=== PATIENT | female | born 2000 | race Caucasian/White ===

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

== ENCOUNTER 2022-09-09 22:20 | Emergency (ER) | payer OTHER ==
[2022-09-09 22:33] VITALS: TEMP 98.9
[2022-09-09] MEDS ORDERED: predniSONE 20 MG TAB PO STA (23:58)
--- NOTE | 2022-09-10 00:01 | ED ---
General Adult HPI - General Chief complaint: Skin/Abscess/Foreign Body Stated complaint: rash on back Time Seen by Provider: 09/09/22 23:19 Source: patient, RN notes reviewed Mode of arrival: ambulatory Limitations: no limitations - History of Present Illness Initial comments: 22-year-old female presents to the emergency department for evaluation of rash to the right flank and right arm, onset 3 days ago. Patient complains of itching discomfort. Did not take anything prior to arrival to treat her symptoms. No known contact with irritant sources. No recent changes in laundry detergent, soaps, or lotions. Denies fever, chills, pain, shortness of breath, wheezing, or difficulty breathing. - Related Data Home Medications Medication Instructions Recorded Confirmed Ferrous Sulfate [Feosol] 325 mg PO DAILY 06/30/20 07/26/21 Vit No.180/Iron/Folic 1 each PO DAILY 06/30/20 07/26/21 [ Plus Tablet] Previous Rx's Medication Instructions Recorded predniSONE [Deltasone] 40 mg PO DAILY #4 tab 09/10/22 Allergies Allergy/AdvReac Type Severity Reaction Status Date / Time amoxicillin Allergy Rash/Hives Verified 09/09/22 22:32 Penicillins Allergy Rash/Hives Verified 07/26/21 06:26 Review of Systems ROS Statement: Those systems with pertinent positive or pertinent negative responses have been documented in the HPI. ROS Other: All systems not noted in ROS Statement are negative. Past Medical History Past Medical History: Asthma Additional Past Medical History / Comment(s): high blood pressure after 1st delivery History of Any Multi-Drug Resistant Organisms: None Reported Past Surgical History: No Surgical Hx Reported Past Anesthesia/Blood Transfusion Reactions: No Reported Reaction Past Psychological History: No Psychological Hx Reported Smoking Status: Never smoker Past Alcohol Use History: None Reported Past Drug Use History: None Reported - Past Family History Father Family Medical History: No Reported History General Exam Limitations: no limitations (Well-developed, well-nourished female in no acute distress.) General appearance: alert, in no apparent distress ENT exam: Present: normal oropharynx, mucous membranes moist Respiratory exam: Present: normal lung sounds bilaterally. Absent: respiratory distress, wheezes, rales, rhonchi, stridor Cardiovascular Exam: Present: regular rate, normal rhythm, normal heart sounds. Absent: systolic murmur, diastolic murmur, rubs, gallop, clicks Neurological exam: Present: alert, oriented X3, CN II-XII intact Psychiatric exam: Present: normal affect, normal mood Skin exam: Present: warm, dry, normal color, rash Expanded Distribution of rash: RUE, other (rt flank) Description of rash: Present: papular (clustered papular rash on right flank and right upper arm. Associated with itching. ) Course Vital Signs 09/09/22 22:30 Temperature 98.9 F Pulse Rate 88 Respiratory 16 Rate Blood Pressure 125/86 O2 Sat by Pulse 100 Oximetry Medical Decision Making - Medical Decision Making This is a well-appearing 22-year-old female in no significant past medical history who presents to the emergency department with a three-day history of a rash on the right flank and right upper extremity. Rash is accompanied by itching discomfort, but is not painful. No prodromal symptoms. Discussed contact dermatitis versus shingles. Rash is clustered papules; nonvesicular lesions. This is likely a contact dermatitis. Patient will be started on a steroid and instructed to take Benadryl upon arrival. Encouraged to avoid known irritants and explore possible triggers. Instructed to follow up with PCP for recheck next week. Return parameters discussed in detail. Patient verbalizes understanding and agrees with this plan. Attending: Melanie. Disposition Clinical Impression: Contact dermatitis Disposition: HOME SELF-CARE Condition: Stable Instructions (If sedation given, give patient instructions): Contact Dermatitis (ED) Additional Instructions: Take steroid as prescribed. May take Benadryl at night for itching discomfort. Avoid applying any fragrance or irritating product on skin. May use calamine lotion. Follow-up with your PCP for a recheck next week if needed. Return to the emergency department with any new, worsening, or concerning symptoms. Prescriptions: predniSONE [Deltasone] 40 mg PO DAILY #4 tab Is patient prescribed a controlled substance at d/c from ED?: No Referrals: None,Stated [Primary Care Provider] - 1-2 days Time of Disposition: 00:01
[2022-09-10 00:16] VITALS: BP 120/87; PULSE 85; RESP 18
== END 2022-09-10 00:15 | disposition home or self-care (01) ==
LOC: EC 22:20
DX: L25.9 Unspecified contact dermatitis, unspecified cause (principal); J45.909 Unspecified asthma, uncomplicated; Z88.0 Allergy status to penicillin; Z79.899 Other long term (current) drug therapy
CPT/HCPCS: 99282; J7512

== ENCOUNTER 2024-01-26 00:55 | Outpatient (CLI) | payer OTHER ==
[2024-01-26 02:07] LABS: Anisocytosis Slight; Basophils % (A) 0 %; Eosinophils # (A) 0.1 k/uL (0-0.7); Eosinophils % (A) 1 %; HCT 28.8 % (34.0-46.0); HGB 9.1 gm/dL (11.4-16.0); Hypochromasia Slight; Lymphocytes # (A) 1.7 k/uL (1.0-4.8); Lymphocytes % (A) 24 %; MCHC 31.6 g/dL (31.0-37.0); MCV 82.3 fL (80.0-100.0); Monocytes # (A) 0.3 k/uL (0-1.0); Monocytes % (A) 4 %; Neutrophils # (A) 4.9 k/uL (1.3-7.7); Neutrophils % (A) 69 %; Platelet Count 313 k/uL (150-450); Poikilocytosis Slight; RDW 17.5 % (11.5-15.5)
[2024-01-26 02:11] VITALS: BP 130/88; PULSE 106; RESP 16; TEMP 97.9
[2024-01-26 02:14] LABS: Appearance,Urine Cloudy (Clear); Bilirubin,Urine Negative (Negative); Blood,Urine Small (Negative); Color,Urine Yellow; Glucose,Urine (UA) Negative (Negative); Ketones,Urine Trace (Negative); Leukocyte Esterase,Urine Large (Negative); Mucus,Urine Few /hpf; Nitrite,Urine Negative (Negative); PH, Urine 6.5 (5.0-8.0); Protein,Urine 2+ (Negative); RBC,Urine 39 /hpf (0-5); Specific Gravity,Urine 1.023 (1.001-1.035); Squamous Epithelial Cell,Urine 3 /hpf (0-4); WBC,Urine 100 /hpf (0-5)
[2024-01-26 02:17] LABS: Amphetamine Screen,Urine Not Detected (NotDetected); Barbiturate Screen,Urine Not Detected (NotDetected); Benzodiazepines Screen,Urine Not Detected (NotDetected); Cocaine Screen,Urine Not Detected (NotDetected); Methadone Screen, Urine Not Detected (NotDetected); Opiate Screen,Urine Not Detected (NotDetected); Oxycodone Screen, Urine Not Detected (NotDetected); Phencyclidine Screen,Urine Not Detected (NotDetected); Tricyclic Antidepressant,Urine Not Detected (NotDetected); Urn Cannabinoid Scrn Not Detected (NotDetected)
[2024-01-27 00:47] LABS: Hepatitis B Surface Antigen Nonreactive
[2024-01-28 09:21] LABS: HIV 2 AB Non-Reactive (Non-Reactive); HIV AB P24 Non-Reactive (Non-Reactive); HIV P24 AG Non-Reactive (Non-Reactive)
[2024-01-28 14:10] LABS: C. trachomatis,PCR Negative (Negative)
[2024-01-28 14:15] LABS: N. gonorrhoeae,PCR Negative (Negative)
--- NOTE | 2024-03-11 08:14 | P.MSEPDOC ---
Presenting Problems - Arrival Data Date of Arrival on Unit: 01/26/24 Time of Arrival on Unit: 00:55 Mode of Transport: Ambulatory - Complaint OB-Reason for Admission/Chief Complaint: Rule Out SROM Comment: pt. present to triage due to leaking for 3-4 days- pt. states she is unsure if its her fluid that is leaking, pt.has had no care this besides one ultrasound around 10weeks at the [facility] which gave her a due date 01/19 Medical History - Information : 4 Para: 3 Term: 3 : 0 Abortions: Spontaneous or Elective: 0 Number of Living Children: 3 - Gestational Age Gestational Age by CHARLINE (wks/days): 40 Weeks and 6 Days - History Complications: No Care Review of Systems - Review of Systems Constitutional: No problems Breast: No problems ENT: No problems Cardiovascular: No problems Respiratory: No problems Gastrointestinal: No problems Genitourinary: No problems Musculoskeletal: No problems Neurological: No problems Skin: No problems Vital Signs - Temperature Temperature: 97.9 F Temperature Source: Temporal Artery Scan - Pulse Pulse Oximetery Pulse Rate: 106 Pulse Assessment Method: Automatic Cuff - Respirations Respiratory Rate: 16 Oxygen Delivery Method: Room Air O2 Sat by Pulse Oximetry: 99 - Blood Pressure Right Arm Blood Pressure: 130/88 Blood Pressure Mean: 102 Medical Screen Scoring - Uterine Contractions Resting: Soft to palpation - Assessment - Baby A Baseline FHR: 135 Heart Rate - NICHD Category: Category I (Normal) NST: Reactive Physician Notification - Physician Notified Physician Notified Date: 01/26/24 Physician Notified Time: 01:27 Physician: Miryam Boone New Order Received: Yes - Notification Comment Comment: pt. states she plans on delivering here just was unable to get into establish care for this - orders to collect labs and UDS and discharge pt. home Maternal Triage Index - Maternal Triage Index Presenting for scheduled procedure w/no complaint: No - Stat/Priority 1 Stat Priority 1: No - Urgent/Priority 2 Urgent Priority 2: No - Prompt/Priority 3 Prompt Priority 3: No - Non-Urgent/Priority 4 Non-Urgent Priority 4: Yes Criteria Met for Priority 4: amnisure negative, lissethming 02/19- pt. comfortable- one contraction traced since present to triage Disposition - Disposition OB Disposition: Discharge to home Discharge Date: 01/26/24 Discharge Time: 01:53 I agree with the RN Medical Screening Exam: Yes Case reviewed; plan agreed upon as documented in EMR&OBIX.: Yes Diagnosis: FALSE LABOR AT OR AFTER 37 COMPLETED WEEKS OF GESTATION
== END 2024-01-26 01:53 | disposition home or self-care (01) ==
LOC: FBPOP 00:55
PROVIDERS: ATTEND Obstetrics & Gynecology
DX: O47.1 False labor at or after 37 completed weeks of gestation (principal); Z3A.40 40 weeks gestation of pregnancy; Z88.0 Allergy status to penicillin
CPT/HCPCS: 59025; 84112; 36415; 86900; 86901; 86762; 82947; 85025; 86850; 87340; 81001; 87491; 87591; 86780; 80306; 87081; 87390; G0463; 99213

== ENCOUNTER 2025-05-19 10:55 | Emergency (ER) | payer OTHER ==
[2025-05-19 11:00] VITALS: TEMP 98
--- NOTE | 2025-05-19 11:39 | ED ---
Female Urogenital HPI - General Chief complaint: Vaginal Bleeding Stated complaint: Vaginal bleeding Time Seen by Provider: 05/19/25 11:37 Source: patient, RN notes reviewed Mode of arrival: ambulatory Limitations: no limitations - History of Present Illness Initial comments: 24-year-old female presented the ER for evaluation of vaginal bleeding. Patient reports in February she had a miscarriage at approximately 6 weeks gestation, patient has not follow-up with OB. Patient states she is A1. She states she has not had a menstrual cycle since then. Yesterday she started to have vaginal spotting but she believes she was starting her menstrual cycle. After showering today she noticed a large amount of blood and states she was "peeing blood". S he also reports passing 4-5 hand size clots. Patient also endorsing lower abdominal cramping which did increase after bleeding increased. She denies blood thinner use. States she has not been sexually active since miscarriage. Patient denies a history of endometriosis, PCOS or uterine fibroids. Patient states after passing clots she was feeling mildly dizzy and nauseous. She denies fevers, chills, vomiting, chest pain, shortness of breath, urinary complaints, constipation/diarrhea or peripheral edema. Patient denies any control use. Last Menstrual Period: 05/19/25 - Related Data Home Medications Medication Instructions Recorded Confirmed Vit No.180/Iron/Folic 1 each PO DAILY 06/30/20 01/26/24 [ Plus Tablet] Previous Rx's Medication Instructions Recorded Wwc-Brik-Jtbes Acid 1 each PO DAILY #30 cap 05/19/25 [-U Capsule] Allergies Allergy/AdvReac Type Severity Reaction Status Date / Time amoxicillin Allergy Rash/Hives Verified 01/26/24 00:59 Penicillins Allergy Rash/Hives Verified 01/26/24 00:59 Review of Systems ROS Statement: Those systems with pertinent positive or pertinent negative responses have been documented in the HPI. ROS Other: All systems not noted in ROS Statement are negative. Past Medical History Past Medical History: Asthma Additional Past Medical History / Comment(s): high blood pressure after 1st delivery History of Any Multi-Drug Resistant Organisms: None Reported Past Surgical History: No Surgical Hx Reported Past Anesthesia/Blood Transfusion Reactions: No Reported Reaction Past Psychological History: No Psychological Hx Reported Smoking Status: Never smoker - Past Family History Father Family Medical History: No Reported History General Exam Limitations: no limitations General appearance: alert, in no apparent distress Respiratory exam: Present: normal lung sounds bilaterally. Absent: respiratory distress, wheezes, rales, rhonchi, stridor Cardiovascular Exam: Present: regular rate, normal rhythm, normal heart sounds. Absent: systolic murmur, diastolic murmur, rubs, gallop, clicks GI/Abdominal exam: Present: soft, tenderness (bilateral lower quadrants), normal bowel sounds. Absent: distended, guarding, rebound, rigid Extremities exam: Present: normal inspection, full ROM, normal capillary refill. Absent: tenderness, pedal edema, joint swelling, calf tenderness Neurological exam: Present: alert, oriented X3, CN II-XII intact Skin exam: Present: warm, dry, intact, normal color. Absent: rash Course Vital Signs 05/19/25 05/19/25 10:58 15:39 Temperature 98 F Pulse Rate 108 H 70 Respiratory 20 18 Rate Blood Pressure 108/74 100/60 O2 Sat by Pulse 98 100 Oximetry Medical Decision Making - Medical Decision Making Was pt. sent in by a medical professional or institution (, PA, STEAM PRESS OPERATOR, urgent care, hospital, or alf...) When possible be specific @ -No Did you speak to anyone other than the patient for history (EMS, parent, family, police, friend...)? What history was obtained from this source @ -No Did you review nursing and triage notes (agree or disagree)? Why? @ -I reviewed and agree with nursing and triage notes Were old charts reviewed (outside hosp., previous admission, EMS record, old EKG, old radiological studies, urgent care reports/EKG's, alf records)? Report findings @ -No old charts were reviewed Differential Diagnosis (chest pain, altered mental status, abdominal pain women, abdominal pain men, vaginal bleeding, weakness, fever, dyspnea, syncope, hea dache, dizziness, GI bleed, back pain, seizure, CVA, palpatations, mental health, musculoskeletal)? @ -Differential Vaginal Bleeding:Spontaneous , threatened , molar , ectopic , bloody show, incompetent cervix, abruptioplacenta, placenta previa, uterine rupture, dysfunctional uterine bleeding, hemorrhage, uterine fibroids, this is not meant to be an a ll-inclusive list. EKG interpreted by me (3pts min.). @ -None done X-rays interpreted by me (1pt min.). @ -None done CT interpreted by me (1pt min.). @ -None done U/S interpreted by me (1pt. min.). @ -Transvaginal ultrasound showing a thickened endometrium. No evidence of right ovarian torsion. Nonvisualization of left ovary due to overlying bowel gas. What testing was considered but not performed or refused? (CT, X-rays, U/S, labs)? Why? @ -None What meds were considered but not given or refused? Why? @ -None Did you discuss the management of the patient with other professionals (prof emmanuel i.e. , PA, STEAM PRESS OPERATOR, lab, RT, psych nurse, social organization professor, traffic operator, teacher, juvenile justice officer, gearcase assembler)? Give summary @ -No Was smoking cessation discussed for >3mins.? @ -No Was critical care preformed (if so, how long)? @ -No Were there social determinants of health that impacted care today? How? (Homelessness, low income, unemployed, alcoholism, drug addiction, transportation, low edu. Level, literacy, decrease access to med. care, penitentiary, rehab)? @ -No Was there de-escalation of care discussed even if they declined (Discuss DNR or withdrawal of care, Hospice)? DNR status @ -No What co-morbidities impacted this encounter? (DM, HTN, Smoking, COPD, CAD, Cancer, CVA, ARF, Chemo, Hep., AIDS, mental health diagnosis, sleep apnea, morbid obesity)? @ - Was patient admitted / discharged? Hospital course, mention meds given and route, prescriptions, significant lab abnormalities, going to OR and other pertinent info. @ -Discharge. 24-year-old female presented the ER for evaluation of vaginal bleeding. Vital signs stable. Patient no signs acute distress nontoxic-appe aring. Laboratory studies remarkable for stable hemoglobin of 10.8. WBC 10.4 left shift. CMP unimpressive. Serum hCG 2614. Urinalysis is hemorrhagic likely contaminated from vaginal bleeding. No evidence of infection. Transvaginal ultrasound showing thickened endometrium. No evidence of right ovarian torsion. Left ovary unable to be visualized given overlying bowel gas. Patient reported with IV fluid bolus and Tylenol for pain control, with improvement. Blood type A- for which patient received RhoGAM prior to discharge. Upon reevaluation, patient educated on today's findings. Patient discharged in stable condition advised follow-up closely with TRAFFIC REPORTER for reevaluation of repeat ultrasounds. I instructed patient to have repeat hCG in 48 hours, prescription provided. prescribed. Strict return parameters discussed. Patient verbally expressed understand agree with care plan. Case discussed with ED attending, Dr. Luna. Undiagnosed new problem with uncertain prognosis? @ -No Drug Therapy requiring intensive monitoring for toxicity (Heparin, Nitro, Insulin, Cardizem)? @ -No Were any procedures done? @ -No Diagnosis/symptom? @ -Vaginal bleeding/ Acute, or Chronic, or Acute on Chronic? @ -Acute Uncomplicated (without systemic symptoms) or Complicated (systemic symptoms)? @ -Uncomplicated Side effects of treatment? @ -No Exacerbation, Progression, or Severe Exacerbation? @ -No Poses a threat to life or bodily function? How? (Chest pain, [place], VA, pneumonia, PE, COPD, DKA, ARF, appy, cholecystitis, CVA, Diverticulitis, Homicidal, Suicidal, threat to staff... and all critical care pts) @ -No - Lab Data Result diagrams: 05/19/25 11:48 05/19/25 11:48 Lab Results 05/19/25 05/19/25 05/19/25 Range/Units 11:43 11:48 11:48 WBC 10.45 H (4.50-10.00) 10*3/uL RBC 3.65 L (4.10-5.20) 10*6/uL Hgb 10.8 L (12.0-15.0) g/dL Hct 32.9 L (37.2-46.3) % MCV 90.1 (80.0-97.0) fL MCH 29.6 (27.0-32.0) pg MCHC 32.8 (32.0-37.0) g/dL Plt Count 233 (140-440) 10*3/uL MPV 11.5 (9.5-12.2) fL Immature Gran % (Auto) 0.3 % Neutrophils % 83.7 % Lymphocytes % 9.6 % Monocytes % 5.6 % Eosinophils % 0.4 % Basophils % 0.4 % Immature Gran # 0.03 (0.00-0.04) 10*3/uL Neutrophils # 8.75 H (1.80-7.70) 10*3/uL Lymphocytes # 1.00 (0.90-5.00) 10*3/uL Monocytes # 0.59 (0.20-1.00) 10*3/uL Eosinophils # 0.04 (0.04-0.35) 10*3/uL Basophils # 0.04 (0.00-0.10) 10*3/uL Sodium 136 L (137-145) mmol/L Potassium 4.1 (3.5-5.1) mmol/L Chloride 102 (98-107) mmol/L Carbon Dioxide 24 (22-30) mmol/L Anion Gap 10 mmol/L BUN 7 (7-17) mg/dL Creatinine 0.43 L (0.52-1.04) mg/dL Est GFR (CKD-EPI)AfAm >90 (>60 ml/min/1.73 sqM) Est GFR (CKD-EPI)NonAf >90 (>60 ml/min/1.73 sqM) Glucose 93 (74-99) mg/dL Calcium 9.7 (8.4-10.2) mg/dL Total Bilirubin 0.7 (0.2-1.3) mg/dL AST 29 (14-36) U/L ALT 14 (4-34) U/L Alkaline Phosphatase 68 (38-126) U/L Total Protein 7.1 (6.3-8.2) g/dL Albumin 4.2 (3.5-5.0) g/dL HCG, Quant 2614.2 mIU/mL Urine Color Urine Appearance (Clear) Urine pH (5.0-8.0) Ur Specific [place] (1.001-1.035) Urine Protein (Negative) Urine Glucose (UA) (Negative) Urine Ketones (Negative) Urine Blood (Negative) Urine Nitrite (Negative) Urine Bilirubin (Negative) Urine Urobilinogen (<2.0) mg/dL Ur Leukocyte Esterase (Negative) Urine RBC (0-5) /hpf Urine WBC (0-5) /hpf Ur Squamous Epith Cells (0-4) /hpf Hyaline Casts (0-2) /lpf Urine Mucus (None) /hpf Urine HCG, Qual (Not Detectd) Blood Type A Negative Blood Type Recheck A Neg Bld Type Recheck Status No Antibody Screen NEGATIVE Spec Expiration Date 05/22/2025 - 234205/19/25 05/19/25 Range/Units 13:02 13:02 WBC (4.50-10.00) 10*3/uL RBC (4.10-5.20) 10*6/uL Hgb (12.0-15.0) g/dL Hct (37.2-46.3) % MCV (80.0-97.0) fL MCH (27.0-32.0) pg MCHC (32.0-37.0) g/dL Plt Count (140-440) 10*3/uL MPV (9.5-12.2) fL Immature Gran % (Auto) % Neutrophils % % Lymphocytes % % Monocytes % % Eosinophils % % Basophils % % Immature Gran # (0.00-0.04) 10*3/uL Neutrophils # (1.80-7.70) 10*3/uL Lymphocytes # (0.90-5.00) 10*3/uL Monocytes # (0.20-1.00) 10*3/uL Eosinophils # (0.04-0.35) 10*3/uL Basophils # (0.00-0.10) 10*3/uL Sodium (137-145) mmol/L Potassium (3.5-5.1) mmol/L Chloride (98-107) mmol/L Carbon Dioxide (22-30) mmol/L Anion Gap mmol/L BUN (7-17) mg/dL Creatinine (0.52-1.04) mg/dL Est GFR (CKD-EPI)AfAm (>60 ml/min/1.73 sqM) Est GFR (CKD-EPI)NonAf (>60 ml/min/1.73 sqM) Glucose (74-99) mg/dL Calcium (8.4-10.2) mg/dL Total Bilirubin (0.2-1.3) mg/dL AST (14-36) U/L ALT (4-34) U/L Alkaline Phosphatase (38-126) U/L Total Protein (6.3-8.2) g/dL Albumin (3.5-5.0) g/dL HCG, Quant mIU/mL Urine Color Yellow Urine Appearance Clear (Clear) Urine pH 6.0 (5.0-8.0) Ur Specific [place] 1.025 (1.001-1.035) Urine Protein Trace H (Negative) Urine Glucose (UA) Negative (Negative) Urine Ketones Negative (Negative) Urine Blood Large H (Negative) Urine Nitrite Negative (Negative) Urine Bilirubin Negative (Negative) Urine Urobilinogen <2.0 (<2.0) mg/dL Ur Leukocyte Esterase Negative (Negative) Urine RBC >182 H (0-5) /hpf Urine WBC 2 (0-5) /hpf Ur Squamous Epith Cells 3 (0-4) /hpf Hyaline Casts 2 (0-2) /lpf Urine Mucus Many H (None) /hpf Urine HCG, Qual Detected (Not Detectd) Blood Type Blood Type Recheck Bld Type Recheck Status Antibody Screen Spec Expiration Date - Radiology Data Radiology results: report reviewed, image reviewed Disposition Clinical Impression: , Vaginal bleeding in Disposition: HOME SELF-CARE Condition: Stable Additional Instructions: Have repeat hCG drawn in 48 hours. Follow-up closely with TRAFFIC REPORTER. Return to the ER for any new or worsening concerns. Prescriptions: Rhb-Sxhp-Npyfe Acid [-U Capsule] 1 each PO DAILY #30 cap Is patient prescribed a controlled substance at d/c from ED?: No Referrals: None,Stated [Primary Care Provider] - 1-2 days Leon Richard MD [STAFF PHYSICIAN] - 1-2 days Time of Disposition: 15:08
[2025-05-19] MEDS: SODIUM CHLORIDE 0.9% 1,000 ML IV ONE (11:45)
[2025-05-19] MEDS: ACETAMINOPHEN TAB 325 MG TAB PO STA (11:46)
--- NOTE | 2025-05-19 13:08 | US ---
EXAMINATION TYPE: US transvaginal DATE OF EXAM: 05/19/2025 COMPARISON: NONE CLINICAL INDICATION: Female, 24 years old with history of vaginal clotting; Vaginal bleeding. Previou s miscarriage 3 months ago, no menstrual cycle since. TECHNIQUE: Transvaginal (TV). Transvaginal grayscale sonographic images of the pelvis were acquired. Doppler imaging: Color Doppler Images were obtained. Spectral doppler images were obtained. FINDINGS: Date of LMP: N/A EXAM MEASUREMENTS: Uterus: 11.4 x 7.0 x 7.3 cm Endometrial Stripe: 3.9 cm Right Ovary: 1.7 x 3.0 x 1.2 cm Left Ovary: Not visualized due to bowel gas. 1. Uterus: Anteverted Appears slightly larger than normal 2. Endometrium: Thickened 3. Right Ovary: wnl 4. Left Ovary: Obscured by overlying bowel gas Spectral, color and waveform doppler imaging shows good arterial and venous flow within the right o vary; there is no evidence for right ovarian torsion. 5. Bilateral Adnexa: wnl 6. Posterior cul-de-sac: wnl Anteverted uterus without focal lesion. Thickened endometrium measuring up to 3.9 cm. No internal inc reased color flow within the endometrium. No evidence of right ovarian torsion. Multiple peripheral f ollicles demonstrated within the right ovary. The left ovary is not visualized due to overlying bowel gas. No free fluid. IMPRESSION: 1. Thickened endometrium. Etiologies include endometrial hyperplasia versus other. Consider direct v isualization versus short-term follow-up exam in 6-12 weeks. 2. Nonvisualization of the left ovary due to overlying bowel gas. [facility], , 05/19/2025 1:06 PM
[2025-05-19 13:17] LABS: Bilirubin,Urine Negative (Negative); Blood,Urine Large (Negative); Color,Urine Yellow; Glucose,Urine (UA) Negative (Negative); Hyaline Casts,Urine 2 /lpf (0-2); Ketones,Urine Negative (Negative); Leukocyte Esterase,Urine Negative (Negative); Mucus,Urine Many /hpf; Nitrite,Urine Negative (Negative); PH, Urine 6.0 (5.0-8.0); Protein,Urine Trace (Negative); RBC,Urine >182 /hpf (0-5); Specific Gravity,Urine 1.025 (1.001-1.035); Squamous Epithelial Cell,Urine 3 /hpf (0-4); Urobilinogen,Urine <2.0 mg/dL (<2.0); WBC,Urine 2 /hpf (0-5)
[2025-05-19 14:02] LABS: Basophils # (A) 0.04 10*3/uL (0.00-0.10); Basophils % (A) 0.4 %; Eosinophils # (A) 0.04 10*3/uL (0.04-0.35); Eosinophils % (A) 0.4 %; HCT 32.9 % (37.2-46.3); HGB 10.8 g/dL (12.0-15.0); Lymphocytes # (A) 1.00 10*3/uL (0.90-5.00); Lymphocytes % (A) 9.6 %; MCH 29.6 pg (27.0-32.0); MCHC 32.8 g/dL (32.0-37.0); MCV 90.1 fL (80.0-97.0); Monocytes # (A) 0.59 10*3/uL (0.20-1.00); Monocytes % (A) 5.6 %; Neutrophils # (A) 8.75 10*3/uL (1.80-7.70); Neutrophils % (A) 83.7 %; Platelet Count 233 10*3/uL (140-440); RBC 3.65 10*6/uL (4.10-5.20); RDW 13.6 % (11.5-14.5); WBC 10.45 10*3/uL (4.50-10.00)
[2025-05-19 14:06] LABS: ALT 14 U/L (4-34); African American GFR (CKD) >90 (>60 ml/min/1.73 sqM); Albumin 4.2 g/dL (3.5-5.0); Anion Gap 10 mmol/L; Blood Urea Nitrogen 7 mg/dL (7-17); Calcium 9.7 mg/dL (8.4-10.2); Carbon Dioxide 24 mmol/L (22-30); Chloride 102 mmol/L (98-107); Glucose 93 mg/dL (74-99); Non-African American GFR(CKD) >90 (>60 ml/min/1.73 sqM); Sodium 136 mmol/L (137-145); Total Protein 7.1 g/dL (6.3-8.2)
[2025-05-19 14:23] LABS: AST 29 U/L (14-36); HCG,Quantitative Serum 2614.2 mIU/mL; Potassium 4.1 mmol/L (3.5-5.1)
[2025-05-19 14:24] LABS: Alkaline Phosphatase 68 U/L (38-126)
[2025-05-19] MEDS: Rhogam IMMUNE GLOBULIN 1,500 UNIT/1 ML IM ONE (15:36)
[2025-05-19 15:41] VITALS: BP 100/60; PULSE 70; RESP 18
== END 2025-05-19 15:41 | disposition home or self-care (01) ==
LOC: EC 10:55
DX: O46.91 Antepartum hemorrhage, unspecified, first trimester (principal); Z88.0 Allergy status to penicillin; Z3A.01 Less than 8 weeks gestation of pregnancy
CPT/HCPCS: 99284; 96360; 96372; 36415; 86900; 86901; 80053; 85025; 86850; 81001; 81025; 84702; 93976; 76830; J2790